=== PATIENT | female | born 1945 | race Caucasian/White ===

== ENCOUNTER 2016-12-23 12:38 | Day surgery (SDC) | payer OTHER ==
[~2016-12-23] VITALS: Ht 149.9 cm; Wt 61.5 kg
[~2016-12-23 12:38] MED LIST: APRI0.372 PO; ASPI81TA82 PO; BIOT5000 PO; CALC600T34 PO; CART180C4 PO; CITA10SO PO; FERR325T PO; LEVO75TA3 PO
[2016-12-23 13:00] VITALS: BP 137/65; PULSE 75; RESP 18; TEMP 98.1; O2SAT 95
[2016-12-23] MEDS ORDERED: CHLORHEXIDINE GLUCONATE 2 % 1 PACK (2 CLOTHS) TOPICAL PRN (13:30)
[2016-12-23] MEDS ORDERED: METOPROLOL TARTRATE 25 MG TAB PO PRN (13:30)
[2016-12-23] MEDS ORDERED: SODIUM CHLORID 0.9% 500 ML IV PRN (13:30)
[2016-12-23] MEDS ORDERED: INSULIN HUMAN REGULAR 1,000 UNITS/10 ML VIAL SQ PRN (13:30)
[2016-12-23] MEDS ORDERED: POVIDONE IODINE 5% (ANTISEPSIS KIT) 4 APPLICATIONS EACH NARE PRN (13:30)
[2016-12-23] MEDS ORDERED: LACTATED RINGER'S 1000 ML IV PRN (13:30)
[2016-12-23 13:51] LABS: AUTOMATED NEUTROPHIL # 2.5 TH/MM3 (1.8-7.7); BASOPHIL # 0.1 TH/MM3 (0-0.2); BASOPHIL % 1.4 % (0.0-2.0); EOSINOPHIL # 0.5 TH/MM3 (0-0.4); HEMATOCRIT 37.9 % (35.0-46.0); HEMO FLAGS DIFF FINAL; LYMPH % 24.4 % (9.0-44.0); LYMPHOCYTE # 1.3 TH/MM3 (1.0-4.8); MEAN CELL VOLUME 94.7 FL (80.0-100.0); MEAN CORPUSCULAR HEMOGLOBIN 31.4 PG (27.0-34.0); MEAN CORPUSCULAR HGB CONC 33.2 % (32.0-36.0); MONO % 16.2 % (0.0-8.0); PLATELET COUNT 307 TH/MM3 (150-450); RED CELL DISTRIBUTION WIDTH 15.2 % (11.6-17.2); WHITE BLOOD COUNT 5.2 TH/MM3 (4.0-11.0)
[2016-12-23] MEDS: SODIUM CHLORID 0.9% 500 ML INJ 500 ML IV SCH (14:00)
[2016-12-23] MEDS ORDERED: LORazepam 1 MG TAB SL SCH (14:00)
[2016-12-23 14:01] LABS: PROTHROMBIN TIME - PATIENT 11.2 SEC (9.8-11.6)
[2016-12-23 14:02] LABS: BICARBONATE 32.5 MEQ/L (21.0-32.0); POTASSIUM 3.8 MEQ/L (3.5-5.1)
[2016-12-23] MEDS ORDERED: TRAM50TA PO (14:38)
[2016-12-23] MEDS ORDERED: LEVO75TA3 PO (14:38)
[2016-12-23] MEDS ORDERED: METH8TAB3 PO (14:38)
[2016-12-23] MEDS ORDERED: APRI0.372 PO (14:38)
[2016-12-23] MEDS ORDERED: METO50TA11 PO (14:38)
[2016-12-23] MEDS ORDERED: ADAL1INJ SQ (14:38)
[2016-12-23] MEDS ORDERED: ASPI-110 PO (14:38)
[2016-12-23] MEDS ORDERED: CELE10TA PO (14:38)
[2016-12-23] MEDS ORDERED: BIOT1000 PO (14:38)
[2016-12-23] MEDS ORDERED: CART180C3 PO (14:38)
[2016-12-23] MEDS ORDERED: MIDAZOLAM HCL 2 MG/2 ML VIAL ONE (17:54)
[2016-12-23] MEDS ORDERED: PROPOFOL 200 MG/20 ML AMP IV ONE (18:04)
[2016-12-23] MEDS ORDERED: METOPROLOL TARTRATE 5 MG/5 ML VIAL ONE (19:00)
--- NOTE | 2016-12-23 19:17 | CATHPROC ---
[employer] HIS Report Study Information Study Number Admission Scheduled Start Study Start [id number] Dec 23 2016 12:38PM 12/23/2016 Dec 23 2016 5:54PM [place] [facility] Electrophysiology Study Admit Source Facility Department Other [facility] Physician and Clinical Staff Initial Delmy Rausch Otolaryngology Nurse Michael Soriano,RT(R) Other Dorcas Saha,BSRDionisio Other Anesthesia, AMBULANCE ASSISTANT Recorder Priti Brown,HANSA Scrub Virginia Torres RCIS Equipment Time Rental Manager Description Size Mfg Part Number Used/Scraped [id number] 18:10 [employer] INDUSTRIES PACK, CCL CUSTOM * Used *[id number] 18:10 [employer] PACER KRISHNA, LIMB * 2530 *[id number] Used [id number] 18:10 [employer] BLANKET,WARM AIR CCL * Used *[id number] 18:14 [employer] CATHETER, JSN, QUAD FR 5 Used *[id number] 18:14 [employer] CATHETER, JSN, QUAD FR 5 Used *[id number] 18:14 [employer] CATHETER, JSN, QUAD FR 5 Used *[id number] 548395 18:14 [employer] CATHETER, JSN, QUAD FR 5 Used *[id number] [id number] 18:11 [employer] SHEATH, EPS, FR5 FAST CATH FR 5 Used *[id number] [id number] 18:11 [employer] SHEATH, EPS, FR5 FAST CATH FR 5 Used *[id number] [id number] 18:11 [employer] SHEATH, EPS, FR5 FAST CATH FR 5 Used *[id number] 18:11 [employer] SHEATH, EPS, FR6 FAST CATH FR 6 [id number] Used History: Current Medications Medication Dosage/Unit Route Frequency Last Date/Time Taken ASA Beta Heydi ELIQUIS LOPRESSOR History: Allergies Allergy Reaction Sulfa Adhesives History: Risk Factors Hypertension Dyslipidemia Previous WI Previous Heart Failure Yes Yes No Yes Prior Valve Prior PCI Prior CABG Surgery No No No Cerebrovascular Peripheral Artery Chronic Lung On Dialysis Diabetes Disease Disease Disease No No No No Yes History: Symptoms/Diagnosis Selection Items LOPEZ Palpitations SOB History: CV Disease Selection Items Cardiomyopathy hypertrophic Labs Hgb (g/dl) Hct (%) RBC (MIL/MM3) WBC (l/cumm) Platelets (thousands) 11.60-17.00 35.00-51.00 4.00-5.90 4.00-11.00 150.00-450.00 12.6 37.9 4 5.2 307 Glucose (mg/dl) BUN (mg/dl) Creatinine (mg/dl) BUN:Creatinine (1:x) 74.00-106.00 7.00-18.00 0.50-1.30 10.00-20.00 99 8 0.8 10 Na (meq/l) K (meq/l) Cl (meq/l) CO2 (mmol/L) Ca (mg/dl) 136.00-145.00 3.50-5.10 98.00-107.00 21.00-32.00 8.50-10.10 141 3.8 104 32.5 9.1 INR (PTT:PT) 0.90-1.10 1 Medication Medication Total Dose (Bolus/Oral) Medication Total Dosage/Unit 1% XYLOCAINE 40 mL LOPRESSOR 5 mg Medications (Bolus/Oral) Medication Time Given Dosage/Unit Administered By Reason 1% XYLOCAINE 12/23/2016 6:29:28 PM 20 mL Delmy Liao For pain 20 mL 1% XYLOCAINE given in lab by Delmy Liao in Left Groin via Subcutaneous. Ordered by Elmer Liao. Reason: For pain. 1% XYLOCAINE 12/23/2016 6:32:36 PM 20 mL Delmy Liao For pain 20 mL 1% XYLOCAINE given in lab by Delmy Liao in Right Groin via Subcutaneous. Ordered by Alyse Liao. Reason: For pain. LOPRESSOR 12/23/2016 7:01:46 PM 5 mg Anesthesia, AMBULANCE ASSISTANT 5 mg LOPRESSOR given in lab by Anesthesia, AMBULANCE ASSISTANT via Peripheral IV. Ordered by Delmy Liao. Medication (Drip) Medication Time Given Dosage/Unit Concentration/Unit Diluent (ml) Solution ISUPREL 12/23/2016 6:47:40 PM 4 mcg/min 1 mg 250 NaCl .9 4 mcg/min ISUPREL given in lab by Yaritza, AMBULANCE ASSISTANT in Right Wrist via Peripheral IV. Pump/Drip Flow = 60 ml/hr using NaCl .9 with a concentration of 1 mg in 250 ml. Ordered by Delmy Liao. Initial Case Assessment Cardiovascular HR NIBP 80 144/865 Edema Present Skin color Skin None Normal Warm Dry Neurological State Oriented to time-place- Alert Moves all extremities person Respiration - General Respiration Rate SpO2 (%) (B/min) 18 100 Final Case Assessment Cardiovascular HR Rhythm NIBP Chest Pain 82 Regular 129/54 0 Edema Present Skin color Skin None Normal Warm Dry Circulatory - Right Pulses Dorsalis Pedis Posterior Tibial Femoral 1 1 1 Scale (0,1,2,3,4,d) Circulatory - Left Pulses Dorsalis Pedis Posterior Tibial Femoral 1 1 1 Scale (0,1,2,3,4,d) Circulatory - Lower Extremities Color Lower Right Color Lower Left Normal Normal Neurological State Oriented to time-place- Alert Moves all extremities person Respiration - General Respiration Rate SpO2 (%) O2 (lpm) (B/min) 15 100 4 Chronological Log Time Study Chronological Log 18:04:00 Patient arrived via Bed. 18:06:58 Patient Name, D.O.B, / Armband Verified By R.N. 18:07:00 Consent signed by the physician and the patient and verified by the [facility] staff. 18:07:02 Pre-op and post- op instructions given; patient acknowledges understanding of instructions. 18:07:04 Verbal Stimulation=2 Physical Stimulation=2 Airway=2 Respiration=2 TOTAL=10. (0=absent, 1=l imited, 2=present) 18:17:47 Anesthesia at bedside. Assumes care of patient. Abigail KOLB 18:17:59 Presedation assessment performed by [facility] RN. 18:18:01 Patient has been NPO for More than 6Hrs. 18:18:09 Skin Breakdown- none 18:18:15 Patient Warmer Placed on the Table. 18:18:18 Disposable Defibrillator Pads Placed On Patient. 18:18:21 Jorge Alberto Prominences Protected 18:18:22 A # 20 IV was noted in the Antecubital (left). Grade = ~GRADE~ 18:18:37 A # 20 IV was noted in the Wrist (right). Grade = ~GRADE~ 18:18:52 History and physical on the chart or being dictated. Assessment: Initial Case, HR=80 BPM, XHGH=634/865 mmhg, Edema=None, Color=Normal, Skin = Warm, Dry 18:18:55 Neurological: State=Alert, Ox3, LATIF Respiration: Resp=18 B/min, QlN2=128 % 18:19:37 Table restraints applied according to hospital policy 18:19:39 Right groin prepped with 2% chlorhexidine, and with a 3 min. waiting time. 18:19:43 Left groin prepped with 2% chlorhexidine, and with a 3 min. waiting time. 18:19:51 MD arrived. 18:23:46 Reference ECG taken Time Out. Correct patient, procedure, procedure equipment, site and side verified with physicia n present. Time 18:25:00 concurred by MD, individual staff and AMBULANCE ASSISTANT. Time Out #2 - Consents verified, patient in correct position, all results are labled and displa yed, safety precautions 18:25:00 taken, antibiotics administered. Time out concurred by MD, individual staff and AMBULANCE ASSISTANT in procedu re 18:25:00 Case Start 20 mL 1% XYLOCAINE given in lab by Delmy Liao in Left Groin via Subcutaneous. Ordered by Delmy Harper. 18:29:28 Reason: For pain. 18:29:46 Vascular access was obtained in the Fem Vein (left). 18:29:51 Vascular access was obtained in the Fem Vein (left). 18:29:51 Vascular access was obtained in the Fem Vein (left). 18:30:01 A SHEATH, EPS, FR5 FAST CATH FR 5 was advanced into the Fem Vein (left) using the Percutane ous technique. 18:30:11 A SHEATH, EPS, FR5 FAST CATH FR 5 was advanced into the Fem Vein (left) using the Percutane ous technique. 18:30:12 A SHEATH, EPS, FR5 FAST CATH FR 5 was advanced into the Fem Vein (left) using the Percutane ous technique. 20 mL 1% XYLOCAINE given in lab by Delmy Liao in Right Groin via Subcutaneous. Ordered by Delmy Tena. 18:32:36 Reason: For pain. 18:32:48 Vascular access was obtained in the Fem Vein (right). 18:32:51 A SHEATH, EPS, FR6 FAST CATH FR 6 was advanced into the Fem Vein (right) using the Percutan eous technique. A CATHETER, JSN, QUAD FR 5 was advanced vis Fem Vein (left) and placed in the HRA. Placement wa s visually 18:35:04 confirmed under fluoroscopy. A CATHETER, JSN, QUAD FR 5 was advanced vis Fem Vein (left) and placed in the HIS. Placement wa s visually 18:35:15 confirmed under fluoroscopy. A CATHETER, JSN, QUAD FR 5 was advanced vis Fem Vein (left) and placed in the RVA. Placement wa s visually 18:35:26 confirmed under fluoroscopy. A CATHETER, JSN, QUAD FR 5 was advanced vis Fem Vein (left) and placed in the CS. Placement was visually 18:35:37 confirmed under fluoroscopy. 18:35:57 EP Study begun. 4 mcg/min ISUPREL given in lab by Anesthesia, AMBULANCE ASSISTANT in Right Wrist via Peripheral IV. Pump/Drip Flow = 60 ml/hr using 18:47:40 NaCl .9 with a concentration of 1 mg in 250 ml. Ordered by Delmy Liao. 18:53:55 Isuprel discontinued per 18:57:00 EP Study complete 19:01:46 5 mg LOPRESSOR given in lab by Anesthesia, AMBULANCE ASSISTANT via Peripheral IV. Ordered by Ady Liao 19:02:45 Case End 19:05:07 Catheter(s) removed without difficulty 19:05:10 Sheath(s) left in place, will be removed in room 238 19:05:40 Sterile dressing applied to site 19:05:42 No case complications noted. 19:05:43 Cine recording checked. 19:05:56 CIC called. Spoke to Danyel. Haylee will be at bedside to pull venous sheaths in room 19:11:29 Defibrillator and ground pads removed. Skin intact. 19:11:31 Verbal Stimulation=2 Physical Stimulation=2 Airway=2 Respiration=2 TOTAL=8. (0=absent, 1=l imited, 2=present) Assessment: Final Case, HR=82 BPM, Rhythm=Regular, SFXR=648/54 mmhg, Chest Pain=0, Edema=None, Color=Normal, Skin = Warm, Dry Right Pulses: Jay Ped=1, Post Tib=1, Femoral=1 Left Pulses: Jay Ped=1, Post Tib=1, Femoral=1 19:11:43 Lower Right Extremities: Color=Normal Lower Left Extremities: Color=Normal Neurological: State=Alert, Ox3, LATIF Respiration: Resp=15 B/min, LcW1=216 %, O2=4 lpm 19:15:36 Patient moved to [facility] End Study - Contrast Media Used In Study Contrast Total Opened (mL) Total Used (mL) Total Wasted (mL) Unspecified 0 0 0 End Study - Maximum Contrast Load Max Contrast Load (mL) 391.8 End Study - Radiation Exposure Fluoro Time (minutes) 1.2 End Study - Patient Disposition Complications Transferred To Interventional Outcome No Telemetry Bed successful
[2016-12-23] MEDS ORDERED: ATROPINE SULFATE 1 MG/ML VIAL IV PRN (19:30)
[2016-12-23] MEDS ORDERED: ONDANSETRON HCL 4 MG/2 ML VIAL IV PRN (19:30)
[2016-12-23] MEDS ORDERED: oxyCODONE/ACETAMINOPHEN 5 MG/325 MG TAB PO PRN ×2 (19:30)
[2016-12-23] MEDS ORDERED: METOCLOPRAMIDE HCL 10 MG/2 ML VIAL IV PRN (19:30)
[2016-12-23] MEDS ORDERED: traMADol HCL 50 MG TAB PO PRN (19:30)
[2016-12-23] MEDS ORDERED: ADALIMUMAB 10 MG SQ SCH (19:30)
[2016-12-23] MEDS ORDERED: SODIUM CHLOR 0.9% 250 ML INJ 250 ML IV PRN (19:30)
[2016-12-23 21:00] VITALS: PULSE 80
[2016-12-23] MEDS: DILTIAZEM-CD 180 MG CAP ER PO SCH (21:00)
[2016-12-23] MEDS ORDERED: PILL SPLITTER OTHER PRN (21:30)
[2016-12-23] MEDS ORDERED: BACITRACIN OINT 0.9 GM PKT TOP ONE (21:30)
[2016-12-23] MEDS ORDERED: LIDOCAINE HCL 1% 50 ML VIAL INFIL PRN (21:30)
[2016-12-23] MEDS ORDERED: LORazepam 2 MG/ML VIAL IV PRN (21:30)
--- NOTE | 2016-12-23 21:56 | MA ---
cc: ROSSANA ABDI M.D. DATE 12/23/2016 Electrophysiology study, CS cannulation, repeat electrophysiology study on Isuprel infusion. INDICATION Ms. Dobson is a 71-year-old female with a history of atrial fibrillation previous ablation who had an episode of wide complex tachyarrhythmia. Supraventricular tachyarrhythmia ventricular tachycardia suspected. Decision for electrophysiology study and possible ablation was taken. The risks, the nature and the benefit of the procedure were clearly stated to her. The risks include pneumothorax, cardiac perforation, stroke, need for open heart surgery and even . The patient understood and agreed to proceed. PROCEDURE After written informed consent was obtained, the patient was brought to the EP lab where she was prepped and draped in the usual sterile fashion. Conscious sedation was initiated and maintained throughout the procedure by anesthesiologist. Once sedation verified, the right and left inguinal areas were anesthetized with 2% Xylocaine. Using modified Seldinger technique, the left femoral vein was cannulated on three occasions and three guidewires were advanced. Over the wire three 5-Bur[place]ian Hemaquet were advanced. Then the right femoral vein was cannulated on one occasion and one guidewire was advanced. Over the wire a 6-[place]ian Hemaquet was advanced. Then under fluoroscopic guidance through the 5 and 6-Bur[place]ian Hemaquets, four 5-[place]ian Yousif curved quadripolar electrophysiology catheters were advanced and positioned on the His, upper right atrium, coronary sinus and right ventricular apex. Basic interval was measured and they were within normal limits. At this point atrial pacing protocol was performed. Atrial pacing protocol consisted of incremental atrial pacing as well as programmed stimulation with 1400 cycle length and up to one extra stimuli delivered. No tachyarrhythmia was induced. Then ventricular pacing protocol was performed. There was VA conduction. Ventricular pacing protocol consisted of incremental ventricular pacing as well as programmed stimulation with 1400 cycle length and up to three extra stimuli delivered. Then Isuprel was infused at 4 [place]. Atrial and ventricular pacing protocol was repeated again. No tachyarrhythmia was induced. Post Isuprel no tachyarrhythmia was induced. At that point the procedure was complete. All catheters were removed. The patient going to be transferred to the telemetry unit. No incident to report. The patient tolerated the procedure. Blood loss minimal. IMPRESSION 1. Electrocardiogram. At baseline the patient was in sinus. Postprocedure electrocardiogram was unchanged. 2. Basic interval. Base cycle length was 740 milliseconds, AH at 58 and HV at 42 milliseconds. 3. Atrial pacing protocol. Wenckebach of the node was around 310 milliseconds. ERP of the node 600, 220 milliseconds. No tachyarrhythmia was induced. 4. Ventricular pacing protocol. There was VA conduction at baseline and on Isuprel. No tachyarrhythmia was induced. CONCLUSION Negative electrophysiology study for supra and ventricular tachyarrhythmia, COMMENT AND RECOMMENDATIONS The patient going to be transferred to recovery room. She will be observed and will be discharged home later in the morning. Rossana Abdi MD HS/KK /7:15 PM /9:41 PM
[2016-12-23 22:00] VITALS: PULSE 90
[2016-12-23 23:00] VITALS: BP 120/60; PULSE 84; RESP 18; TEMP 98; O2SAT 93
[2016-12-24] VITALS (15 sets, daily range): BP systolic 112–131; BP diastolic 66–76; PULSE 77–106; RESP 16–18; TEMP 98.5–98.8; O2SAT 94–97
[2016-12-24] MEDS ORDERED: LEVOTHYROXINE SODIUM 75 MCG TAB PO SCH (06:00)
[2016-12-24] MEDS ORDERED: NON-FORMULARY DRUG (Mesalamine ER 24 HR (Apriso) 1.5 GM) PO SCH (09:00)
[2016-12-24] MEDS ORDERED: methylPREDNISolone 4 MG TAB PO SCH (09:00)
[2016-12-24] MEDS ORDERED: ASPIRIN EC 81 MG TABEC PO SCH (09:00)
[2016-12-24] MEDS ORDERED: METOPROLOL SUCCINATE 50 MG EXTENDED RELEASE TAB PO SCH (09:00)
[2016-12-24] MEDS ORDERED: CITALOPRAM HYDROBROMIDE 20 MG TAB PO SCH (09:00)
[2016-12-24] MEDS: DILTIAZEM-CD 180 MG CAP ER PO SCH (09:35)
[2016-12-24] MEDS: SODIUM CHLORID 0.9% 500 ML INJ 500 ML IV SCH (09:41)
--- NOTE | 2016-12-24 11:28 | EKG ---
Date Performed: 12/23/2016 Time Performed: 21:05:34 PTAGE: 71 years EKG: Sinus rhythm LVH with secondary repolarization abnormality Ant/septal and lateral ST-T changes may be due to hype rtrophy and/or ischemia Abnormal ECG Compared to prior tracing no significant change PREVIOUS TRACING : 12/23/2016 13.32 DOCTOR: Israel Guzman Interpretating Date/Time 12/24/2016 11:26:35
--- NOTE | 2016-12-24 11:28 | EKG ---
Date Performed: 12/23/2016 Time Performed: 13:32:16 PTAGE: 71 years EKG: Sinus rhythm . LVH with secondary repolarization abnormality Ant/septal and lateral ST-T changes are probably due to ventricular hypertrophy Abnormal ECG Compared to prior tracing no significant change PREVIOUS TRACING : 06/06/2014 04.34 DOCTOR: Israel Guzman Interpretating Date/Time 12/24/2016 11:26:24
--- NOTE | 2016-12-24 11:28 | EKG ---
Date Performed: 12/24/2016 Time Performed: 03:29:54 PTAGE: 71 years EKG: Sinus rhythm with PAC(s) LVH with secondary repolarization abnormality Ant/septal and lateral ST-T changes may be due to hypertrophy and/or ischemia Abnormal ECG Compared to prior tracing no significant change PREVIOUS TRACING : 12/23/2016 21.05 DOCTOR: Israel Guzman Interpretating Date/Time 12/24/2016 11:27:05
--- NOTE | 2016-12-24 13:13 | HHI.PR ---
Subjective Remarks Feeling ok Objective Vital Signs Date Time Temp Pulse Resp B/P Pulse Ox O2 Delivery O2 Flow Rate FiO2 12/24/16 10:00 106 12/24/16 09:00 92 12/24/16 08:00 102 12/24/16 07:35 90 12/24/16 07:30 98.8 93 18 112/69 97 12/24/16 05:50 88 12/24/16 04:00 92 12/24/16 03:30 98.5 85 16 131/76 95 12/24/16 03:00 83 12/24/16 02:00 80 12/24/16 01:00 82 12/24/16 00:00 80 12/23/16 23:00 98.0 84 18 120/60 93 12/23/16 23:00 84 12/23/16 22:00 90 12/23/16 21:00 80 I/O 12/23/16 12/23/16 12/23/16 12/24/16 12/24/16 12/24/16 06:59 14:59 22:59 06:59 14:59 22:59 Intake Total 480 ml Output Total 2 ml Balance 478 ml Intake Oral 480 ml Output Stool Total 2 ml Result Diagram: 12/23/16 1315 12/23/16 1315 Imaging Alert, fully oriented Lungs: ventilated Heart: S1, S2 regular, no gallop Abdomen: soft, no mass Ext: no edema Current Medications Medications (Trade) Dose Ordered Sig/Matthew Route Start Time Stop Time Status Last Admin Lactated Ringer's 1,000 ml @ 30 mls/hr Q24H PRN IV 12/23/16 13:30 12/26/16 13:29 Sodium Chloride 500 ml @ 30 mls/hr [id number] PRN IV 12/23/16 13:30 12/26/16 13:29 (NS 500 ml Inj) 500 ml @ 30 mls/hr [id number] IV 12/23/16 14:00 (Percocet 5-325 Mg) 1 tab Q4H PRN PO 12/23/16 19:30 (Percocet 5-325 Mg) 2 tab Q4H PRN PO 12/23/16 19:30 (Ativan Inj) 0.5 mg UNSCH PRN IV 12/23/16 21:30 12/24/16 21:29 Atropine Sulfate 0.5 mg 0.5 mg UNSCH PRN IV 12/23/16 19:30 (NS 250 ml Inj) 250 ml @ 500 mls/hr ONCE PRN IV 12/23/16 19:30 12/24/16 19:29 (Reglan Inj) 10 mg Q4H PRN IV 12/23/16 19:30 (Zofran Inj) 4 mg Q4H PRN IV 12/23/16 19:30 (Xylocaine 1% Inj (50 ml)) 10 ml UNSCH PRN INFIL 12/23/16 21:30 12/24/16 21:29 (Ecotrin Ec) 81 mg DAILY PO 12/24/16 09:00 12/24/16 09:35 (CeleXA) 10 mg DAILY PO 12/24/16 09:00 12/24/16 09:35 (Cardizem Cd) 180 mg BID PO 12/23/16 21:00 12/24/16 09:35 (Synthroid) 75 mcg DAILY@06 PO 12/24/16 06:00 12/24/16 05:21 (Medrol) 4 mg DAILY PO 12/24/16 09:00 (Toprol Xl) 50 mg DAILY PO 12/24/16 09:00 12/24/16 09:35 (Ultram) 50 mg Q6H PRN PO 12/23/16 19:30 UNV Non-Formulary Medication 10 mg Q14D SQ 12/23/16 19:30 UNV Non-Formulary Medication 1.5 gm DAILY PO 12/24/16 09:00 UNV (Pill Splitter) 1 ea UNSCH PRN OTHER 12/23/16 21:30 Assessment and Plan Problem List: (1) Shortness of breath Status: Acute Plan: No significant SOB reported (2) Palpitations Status: Acute Plan: EP study negative for VT and SVT No ischemia Possible short burst of SVT with aberrancy Will continue on current medical management. Delmy Liao MD Dec 24, 2016 13:13
== END 2016-12-24 14:00 | disposition home or self-care (01) ==
LOC: HCAT 12:38 → HDIC 12:39 → HCIN 20:37 → HCAT 12-24 14:00
PROVIDERS: ATTEND Internal Medicine Interventional Cardiology
DX: I47.2 Ventricular tachycardia (principal); I48.0 Paroxysmal atrial fibrillation; I11.9 Hypertensive heart disease without heart failure; R06.02 Shortness of breath; R00.2 Palpitations
CPT/HCPCS: 00537; 80048; 85025; 85610; 85730; 86850; 86900; 86901; 93005; 93620; 93623; C1730; J2250; J3010